=== PATIENT | male | born 1970 | race Caucasian/White ===

== ENCOUNTER 2020-04-11 15:29 | Inpatient (IN) | payer MEDICAID ==
[~2020-04-11] VITALS: Ht 165.1 cm; Wt 90.9 kg
[2020-04-11] MEDS ORDERED: ADVIL200 MG PO (15:34)
[2020-04-11] MEDS ORDERED: IBUPROFEN800 MG PO (15:34)
[2020-04-11] MEDS ORDERED: LIPITOR40 MG PO (15:34)
[2020-04-11] MEDS ORDERED: NAPROXEN SODIU220 M1 PO (15:35)
[2020-04-11] MEDS ORDERED: ACETAMINOPHEN325 MG PO (15:35)
[2020-04-11] MEDS ORDERED: RISPERDAL2 MG PO (15:35)
[2020-04-11] MEDS ORDERED: KEPPRA1000 MG PO (15:35)
[2020-04-11 15:58] LABS: BASOPHILS 0.3 % (0-2); EOSINOPHILS 1.8 % (0-7); HEMATOCRIT 47.3 % (42.0-54.0); HEMOGLOBIN 15.7 g/dL (13.5-17.5); IMMATURE GRANULOCYTES 0.2 % (0-5); LYMPHOCYTES 15.5 % (15-50); MCH 29.7 pg (26.0-34.0); MCHC 33.2 g/dL (31.0-37.0); MCV 89.4 fL (80.0-100.0); MEAN PLATELET VOLUME 11.7 fL (7.4-10.4); MONOCYTES 3.9 % (2-11); NEUTROPHILS 78.3 % (40-80); PLATELET COUNT 188 10x3/uL (130-400); RBC 5.29 10x6/uL (4.20-6.10); RDW 12.8 % (11.5-14.5); WBC 11.9 10x3/uL (4.8-10.8)
[2020-04-11 16:00] VITALS: BP 115/76
[2020-04-11 16:09] LABS: CALC OSMOLALITY 275 mosm/kg (275-300); CALCIUM 9.4 mg/dL (8.5-10.1); CARBON DIOXIDE 26.3 mmol/L (21.0-32.0); CHLORIDE - SERUM 105 mmol/L (98-107); CREATININE - SERUM 0.8 mg/dL (0.6-1.3); GLUCOSE 139 mg/dL (74-106); POTASSIUM - SERUM 4.4 mmol/L (3.5-5.1); SODIUM 137 mmol/L (136-145); UREA NITROGEN 13 mg/dL (7-18); eGFR NON AFRICAN AMERICAN > 90 mL/min (90-120)
[2020-04-11 16:13] LABS: BILIRUBIN NEGATIVE (NEGATIVE); GLUCOSE NEGATIVE (NEGATIVE); KETONE NEGATIVE (NEGATIVE); NITRITE NEGATIVE (NEGATIVE); UROBILINOGEN NORMAL (NORMAL)
[2020-04-11 16:18] LABS: ALBUMIN 3.8 g/dL (3.4-5.0); ALKALINE PHOSPHATASE 82 U/L (30-120); ALT (SGPT) 52 U/L (10-68); BILIRUBIN - TOTAL 0.26 mg/dL (0.2-1.3); MAGNESIUM - SERUM 2.5 mg/dL (1.8-2.4); PROTEIN - SERUM 7.6 g/dL (6.4-8.2)
[2020-04-11 16:20] LABS: UDS - AMPHET NEGATIVE QUAL (NEGATIVE); UDS - BARB NEGATIVE QUAL (NEGATIVE); UDS - BENZO NEGATIVE QUAL (NEGATIVE); UDS - COCAINE NEGATIVE QUAL (NEGATIVE); UDS - OPIATE NEGATIVE QUAL (NEGATIVE); UDS - PCP NEGATIVE QUAL (NEGATIVE); UDS - THC NEGATIVE QUAL (NEGATIVE)
[2020-04-11 17:00] VITALS: BP 119/79
[2020-04-11 18:00] VITALS: BP 131/85
--- NOTE | 2020-04-11 19:45 | NUR ---
RECEIVED PT. PT LYING IN BED AWAKE AND ALERT. NELY IS AT BEDSIDE. CALL LIGHT WITH IN REACH. WILL CONTINUE TO MONITOR
[2020-04-12] VITALS: BP 104/75
--- NOTE | 2020-04-12 00:22 | NUR ---
PT LYING IN BED AWAKE ALERT AND ORIENTED x4. NO SIGNS OR SYMPTOMS OF DISTRESS NOTED. PT COMPLINED OF PAIN TO HIS TEETH. PRN PAIN MEDICATION ADMINISTERED. CUSTODIAL GAURD IS AT BEDSIDE. SIDERAILS x2. WATER PROVIDED. CALL LIGHT AND OTHER PERSONAL ITEMS WITH IN REACH. WILL CONTINUE TO MONITOR
[2020-04-12 04:00] VITALS: BP 102/73
[2020-04-12 06:00] LABS: BASOPHILS 0.1 % (0-2); EOSINOPHILS 0.1 % (0-7); HEMATOCRIT 45.6 % (42.0-54.0); HEMOGLOBIN 15.2 g/dL (13.5-17.5); IMMATURE GRANULOCYTES 0.2 % (0-5); LYMPHOCYTES 9.6 % (15-50); MCH 29.9 pg (26.0-34.0); MCHC 33.3 g/dL (31.0-37.0); MCV 89.8 fL (80.0-100.0); MEAN PLATELET VOLUME 11.8 fL (7.4-10.4); MONOCYTES 0.7 % (2-11); NEUTROPHILS 89.3 % (40-80); PLATELET COUNT 198 10x3/uL (130-400); RBC 5.08 10x6/uL (4.20-6.10); RDW 12.8 % (11.5-14.5); WBC 11.9 10x3/uL (4.8-10.8)
--- NOTE | 2020-04-12 06:30 | NUR ---
PT RESTING COMFORTABLY. NO SIGNS OF DISTRESS NOTED. RESPIRATIONS EVEN AND UNLABORED. MORPHINE BOLUS ADMINISTERED. WILL CONTINUE TO MONITOR
[2020-04-12 06:38] LABS: ALBUMIN 3.5 g/dL (3.4-5.0); ALKALINE PHOSPHATASE 76 U/L (30-120); ALT (SGPT) 54 U/L (10-68); BILIRUBIN - TOTAL 0.23 mg/dL (0.2-1.3); CALC OSMOLALITY 283 mosm/kg (275-300); CALCIUM 8.8 mg/dL (8.5-10.1); CARBON DIOXIDE 24.3 mmol/L (21.0-32.0); CHLORIDE - SERUM 107 mmol/L (98-107); CREATININE - SERUM 0.7 mg/dL (0.6-1.3); GLUCOSE 141 mg/dL (74-106); POTASSIUM - SERUM 4.3 mmol/L (3.5-5.1); PROTEIN - SERUM 7.4 g/dL (6.4-8.2); SODIUM 141 mmol/L (136-145); UREA NITROGEN 15 mg/dL (7-18); eGFR NON AFRICAN AMERICAN > 90 mL/min (90-120)
--- NOTE | 2020-04-12 08:00 | NUR ---
PT SITTING UP IN BED, RR EVEN AND UNLABORED ON 2L NC. COVID TEST PERFORMED AND SENT TO LAB. GUARD AT BEDSIDE. CALL LIGHT WITHIN REACH. BED IN LOWEST POSITION. DENIES NEEDS OR PAIN AT THIS TIME. WILL CONTINUE TO MONITOR.
[2020-04-12 08:56] VITALS: BP 122/76
[2020-04-12 16:57] LABS: APTT 23.2 SECONDS (22.8-39.4); INR 1.02 (0.85-1.17); PROTIME 13.4 SECONDS (11.6-15.0)
--- NOTE | 2020-04-12 20:00 | NUR ---
REPORT RECEIVED AND ROUNDING COMPLETE. PATIENT LAYING IN BED IN LOW FOWLERS, GUARD AT BEDSIDE. PATIENT WEARING O2 AT 2L VIA NASAL CANNULA. LEFT HAND PIV IS RUNNING ABX AT THIS TIME. WATER GIVEN, NO OTHER REQUEST OR COMPLAINTS AT THIS TIME. CALL LIGHT WITHIN REACH AND BED IN LOWEST LOCKED POSITON.
[2020-04-12 20:48] VITALS: BP 122/65
[2020-04-13 00:30] VITALS: BP 95/55
[2020-04-13 04:30] VITALS: BP 114/72
[2020-04-13 05:52] LABS: BASOPHILS 0.2 % (0-2); EOSINOPHILS 1.7 % (0-7); HEMATOCRIT 40.6 % (42.0-54.0); HEMOGLOBIN 13.1 g/dL (13.5-17.5); IMMATURE GRANULOCYTES 0.2 % (0-5); LYMPHOCYTES 28.2 % (15-50); MCH 29.6 pg (26.0-34.0); MCHC 32.3 g/dL (31.0-37.0); MEAN PLATELET VOLUME 11.9 fL (7.4-10.4); MONOCYTES 4.9 % (2-11); NEUTROPHILS 64.8 % (40-80); PLATELET COUNT 176 10x3/uL (130-400); RBC 4.42 10x6/uL (4.20-6.10); RDW 13.4 % (11.5-14.5); WBC 10.9 10x3/uL (4.8-10.8)
[2020-04-13 05:54] LABS: MCV 91.9 fL (80.0-100.0)
[2020-04-13 06:17] LABS: ALBUMIN 3.2 g/dL (3.4-5.0); ALKALINE PHOSPHATASE 62 U/L (30-120); ALT (SGPT) 49 U/L (10-68); BILIRUBIN - TOTAL 0.28 mg/dL (0.2-1.3); CALC OSMOLALITY 280 mosm/kg (275-300); CALCIUM 8.1 mg/dL (8.5-10.1); CARBON DIOXIDE 26.8 mmol/L (21.0-32.0); CHLORIDE - SERUM 106 mmol/L (98-107); GLUCOSE 103 mg/dL (74-106); MAGNESIUM - SERUM 2.2 mg/dL (1.8-2.4); POTASSIUM - SERUM 3.8 mmol/L (3.5-5.1); PROTEIN - SERUM 6.4 g/dL (6.4-8.2); SODIUM 140 mmol/L (136-145); UREA NITROGEN 17 mg/dL (7-18)
[2020-04-13 06:24] LABS: CREATININE - SERUM 0.9 mg/dL (0.6-1.3); eGFR NON AFRICAN AMERICAN > 90 mL/min (90-120)
--- NOTE | 2020-04-13 07:00 | NUR ---
RECEIVED REPORT. ASSUMED CARE OF PATIENT. CALL LIGHT WITHIN REACH. PATIENT WITH GAURD AT BEDSIDE. PATIENT DENIES NEEDS THIS AM. RESP EVEN AND UNLABORED. WHITE BOARD UPDATED. BEDSIDE SHIFT REPORT COMPLETED. NO DISTRESS.
[2020-04-13 09:41] VITALS: BP 134/73
--- NOTE | 2020-04-13 11:39 | NUR ---
DR. PAZ HERE FOR ROUNDS. NO DISTRESS. CALL LIGHT WITHIN REACH.
--- NOTE | 2020-04-13 14:15 | NUR ---
RESTING IN BED WITH EYES CLOSED, EASILY AROUSED. DENIES PAIN OR DISCOMFORT. CONTINUES WITH GAURD AT BEDSIDE. NO DISTRESS.
[2020-04-13 16:09] VITALS: BP 126/72
--- NOTE | 2020-04-13 16:11 | NUR ---
TOOK PT FOR A WALK TEST. PRE TEST WITHOUT OXYGEN PT WAS 94% POST WALK TEST PT WAS 96%
--- NOTE | 2020-04-13 17:30 | NUR ---
22 GAUGE IV PLACED TO LEFT ANTERIOR WRIST/FOREARM X 1 STICK. GOOD BLOOD RETURN, EASY FLUSH. TOLERATED IV PLACEMENT WELL. 20 GAUGE IV REMOVED FROM LEFT HAND. CATHETER TIP INTACT. NO BLEEDING FROM SITE. 2X2 GAUZE APPLIED AND SECURED WITH TAPE. TOLERATED IV REMOVAL DUE TO LEAKING.
[2020-04-13 20:31] VITALS: BP 102/59
--- NOTE | 2020-04-13 22:05 | NUR ---
BEDTIME MEDS GIVEN. GAURD AT BEDSIDE. IV ABT COMPLETED AND IV NOW SALINE LOCKED. PT BEING READIED BY MAKEUP ARTISTRY INSTRUCTOR TO TAKE A SHOWER. CPOC.
[2020-04-14 00:43] VITALS: BP 102/59; Ht 165.1 cm; Wt 90.9 kg
[2020-04-14 04:40] VITALS: BP 120/76
[2020-04-14 06:25] LABS: BASOPHILS 0.5 % (0-2); EOSINOPHILS 4.7 % (0-7); HEMATOCRIT 40.2 % (42.0-54.0); HEMOGLOBIN 13.1 g/dL (13.5-17.5); IMMATURE GRANULOCYTES 0.1 % (0-5); LYMPHOCYTES 37.8 % (15-50); MCHC 32.6 g/dL (31.0-37.0); MEAN PLATELET VOLUME 11.6 fL (7.4-10.4); MONOCYTES 5.3 % (2-11); NEUTROPHILS 51.6 % (40-80); PLATELET COUNT 169 10x3/uL (130-400); RBC 4.37 10x6/uL (4.20-6.10); RDW 13.5 % (11.5-14.5); WBC 7.4 10x3/uL (4.8-10.8)
[2020-04-14 06:43] LABS: ALKALINE PHOSPHATASE 60 U/L (30-120); ALT (SGPT) 45 U/L (10-68); BILIRUBIN - TOTAL 0.33 mg/dL (0.2-1.3); CALC OSMOLALITY 285 mosm/kg (275-300); CALCIUM 7.9 mg/dL (8.5-10.1); CARBON DIOXIDE 25.5 mmol/L (21.0-32.0); CHLORIDE - SERUM 110 mmol/L (98-107); CREATININE - SERUM 0.8 mg/dL (0.6-1.3); GLUCOSE 92 mg/dL (74-106); MAGNESIUM - SERUM 2.1 mg/dL (1.8-2.4); POTASSIUM - SERUM 3.8 mmol/L (3.5-5.1); SODIUM 143 mmol/L (136-145); UREA NITROGEN 15 mg/dL (7-18); eGFR NON AFRICAN AMERICAN > 90 mL/min (90-120)
--- NOTE | 2020-04-14 07:00 | NUR ---
RECEIVED REPORT. ASSUMED CARE OF PATIENT. CALL LIGHT WITHIN REACH. PATIENT SITTING UP IN BED. GAURD AT BEDSIDE. BEDSIDE SHIFT REPORT COMPLETE. WHITE BOARD UPDATED. PATIENT DENIES NEEDS. NO DISTRESS.
[2020-04-14 09:01] VITALS: BP 108/64
[2020-04-14] MEDS ORDERED: ZPAK PO (10:01)
[2020-04-14 13:28] VITALS: BP 98/61
--- NOTE | 2020-04-14 16:13 | NUR ---
HAVE PAGED BALDO PATTERSON X 4 TIMES TO MAKE SURE THAT DOC TO DOC WAS COMPLETED. CALLED AND SPOKE TO KAREN TO GIVE REPORT AT [facility]. KAREN STATES SHE IS NOT THE NURSE THAT WILL CARE FOR THE PATIENT, SHE IS JUST TAKING THE REPORT. KAREN CONFIRMED THAT THE DOC TO DOC WAS COMPLETED.
--- NOTE | 2020-04-14 16:22 | NUR ---
22 GAUGE IV REMOVED FROM LEFT WRIST. CATHETER TIP INTACT. NO BLEEDING FROM SITE. 2X2 GAUZE APPLIED AND SECURED WITH BANDAID. TOLERATED IV REMOVAL WELL PATIENT IS RETURNING TO [facility]. DISCHARGE INSTRUCTIONS PROVIDED TO PATIENT AND GAURD AT BEDSIDE. PATIENT VERBALIZED UNDERSTANDING OF ALL INSTRUCTIONS. GUARD STATES WILL BE ONE HOUR BEFORE SOMEONE IS ABLE TO PICK HIM AND THE PATIENT UP FOR TRANSFER BACK TO [facility].
--- NOTE | 2020-04-14 17:06 | NUR ---
PATIENT LEFT UNIT VIA WHEELCHAIR WITH NELY. PATIENT TRANSFERRED BACK TO [facility] IN [place]. PATIENT IN NO ACUTE DISTRESS UPON LEAVING UNIT AND THANKED THIS CHART COMPUTER FOR ALL CARES RENDERED.
== END 2020-04-14 17:07 | DRG 206 ==
LOC: D.ER 15:29 → D.M2 17:38
PROVIDERS: Family Medicine; ADMIT Family Medicine; ATTEND Family Medicine
DX: J98.11 Atelectasis (principal); R09.02 Hypoxemia; J44.9 Chronic obstructive pulmonary disease, unspecified; G40.909 Epilepsy, unspecified, not intractable, without status epilepticus; F31.9 Bipolar disorder, unspecified